=== PATIENT | female | born 1980 | race Caucasian/White ===

== ENCOUNTER 2016-12-10 17:30 | Emergency (ER) | payer OTHER ==
[~2016-12-10] VITALS: Ht 152.4 cm; Wt 64.0 kg
[~2016-12-10 17:30] MED LIST: ADVAIR 250/501 DISK AEROSOL; AMOXICILLIN500 MG PO; ATIVAN1 MG PO; AUGMENTIN875 MG PO; CIPRO500 MG PO; EFFEXOR XR150 MG PO; NAPROSYN500 MG PO; PROAIR HFA8.5 GM AEROSOL; SEROQUEL100 MG PO; SEROQUEL50 MG PO; TYLENOL WITH C1 EACH PO; ULTRAM50 MG PO; VENTOLIN HFA18 GM IH; ZOLOFT100 MG PO
[2016-12-10 19:34] VITALS: BP 120/80
== END 2016-12-10 19:36 | disposition home or self-care (01) ==
LOC: EME 17:30
DX: T40.2X1A Poisoning by other opioids, accidental (unintentional), initial encounter (principal); M54.2 Cervicalgia; V43.52XA Car driver injured in collision with other type car in traffic accident, initial encounter; K08.89 Other specified disorders of teeth and supporting structures; G89.29 Other chronic pain; F41.9 Anxiety disorder, unspecified; F17.200 Nicotine dependence, unspecified, uncomplicated; Z88.8 Allergy status to other drugs, medicaments and biological substances
CPT/HCPCS: 72050; 99281; 99284; J2310